=== PATIENT | male | born 1950 | race Caucasian/White ===

== ENCOUNTER 2018-09-17 07:06 | Emergency (ER) | payer OTHER, MEDICARE ==
[2018-09-17] MEDS ORDERED: GLUCOPHAGE500 MG PO (07:16)
[2018-09-17] MEDS ORDERED: GLIPIZIDE10 MG (07:17)
[2018-09-17] MEDS ORDERED: ASPIRIN81 MG PO (07:17)
[2018-09-17] MEDS ORDERED: TOPROL XL50 MG PO (07:18)
[2018-09-17] MEDS ORDERED: NORVASC10 MG PO (07:19)
[2018-09-17] MEDS ORDERED: AREDIA IV (07:20)
[2018-09-17] MEDS ORDERED: LITHIUM CARBON300 MG PO (07:20)
[2018-09-17] MEDS ORDERED: LIPITOR20 MG PO (07:20)
[2018-09-17] MEDS ORDERED: FLOMAX0.4 MG PO ×2 (07:21→09:02)
[2018-09-17] MEDS ORDERED: TRAZODONE HCL150 MG PO (07:22)
[2018-09-17] MEDS ORDERED: NEURONTIN 300300 MG PO (07:22)
[2018-09-17 07:36] LABS: BASOPHILS 0.1 % (0-2); EOSINOPHILS 3.6 % (0-7); HEMATOCRIT 35.4 % (42.0-54.0); HEMOGLOBIN 12.2 g/dL (13.5-17.5); IMMATURE GRANULOCYTES 0.1 % (0-5); LYMPHOCYTES 15.9 % (15-50); MCH 28.7 pg (26.0-34.0); MCHC 34.5 g/dL (31.0-37.0); MCV 83.3 fL (80.0-100.0); MEAN PLATELET VOLUME 9.1 fL (7.4-10.4); MONOCYTES 9.7 % (2-11); NEUTROPHILS 70.6 % (40-80); PLATELET COUNT 228 10x3/uL (130-400); RBC 4.25 10x6/uL (4.20-6.10); RDW 13.4 % (11.5-14.5); WBC 7.9 10x3/uL (4.8-10.8)
[2018-09-17 07:50] LABS: APTT 29.6 SECONDS (22.8-39.4); INR 1.12 (0.85-1.17); PROTIME 13.9 SECONDS (11.6-15.0)
[2018-09-17 08:01] LABS: APPEARANCE CLEAR (CLEAR); BILIRUBIN NEGATIVE (NEGATIVE); COLOR YELLOW (YELLOW); GLUCOSE NEGATIVE (NEGATIVE); KETONE NEGATIVE (NEGATIVE); NITRITE NEGATIVE (NEGATIVE); PROTEIN NEGATIVE (NEGATIVE); SPECIFIC GRAVITY 1.005 (1.005-1.020); UROBILINOGEN NORMAL (NORMAL)
[2018-09-17 08:02] LABS: ALBUMIN 3.8 g/dL (3.4-5.0); ALKALINE PHOSPHATASE 156 U/L (46-116); ALT (SGPT) 24 U/L (10-68); BILIRUBIN - TOTAL 0.93 mg/dL (0.2-1.3); CALC OSMOLALITY 285 mosm/kg (275-300); CALCIUM 9.2 mg/dL (8.5-10.1); CARBON DIOXIDE 23.8 mmol/L (21.0-32.0); CHLORIDE - SERUM 106 mmol/L (98-107); CREATININE - SERUM 0.6 mg/dL (0.6-1.3); GLUCOSE 156 mg/dL (74-106); POTASSIUM - SERUM 3.7 mmol/L (3.5-5.1); PROTEIN - SERUM 6.9 g/dL (6.4-8.2); SODIUM 142 mmol/L (136-145); UREA NITROGEN 13 mg/dL (7-18); eGFR NON AFRICAN AMERICAN > 90 mL/min (90-120)
[2018-09-17 08:10] LABS: CREATINE KINASE 63 UL (21-232); MAGNESIUM - SERUM 1.8 mg/dL (1.8-2.4); TROPONIN-I < 0.017 ng/mL (0.000-0.060)
[2018-09-17] MEDS ORDERED: LUNESTA1 MG PO (11:45)
[2018-09-17 12:15] VITALS: BP 148/77
== END 2018-09-17 12:27 | disposition home or self-care (01) ==
LOC: D.ER 07:06
PROVIDERS: Emergency Medicine
DX: R53.1 Weakness (principal); D64.9 Anemia, unspecified; H53.2 Diplopia; G47.00 Insomnia, unspecified; R35.0 Frequency of micturition

== ENCOUNTER 2019-11-29 08:58 | Emergency (ER) | payer OTHER ==
[~2019-11-29] VITALS: Ht 190.5 cm; Wt 115.0 kg
[~2019-11-29 08:58] MED LIST: AREDIA IV; ASPIRIN81 MG PO; FLOMAX0.4 MG PO; GLIPIZIDE10 MG; GLUCOPHAGE500 MG PO; LIPITOR20 MG PO; LITHIUM CARBON300 MG PO; LUNESTA1 MG PO; NEURONTIN 300300 MG PO; NORVASC10 MG PO; TOPROL XL50 MG PO; TRAZODONE HCL150 MG PO
[2019-11-29 09:09] VITALS: BP 134/62; Ht 190.5 cm; Wt 115.0 kg
[2019-11-29 10:07] LABS: BASOPHILS 0.2 % (0-2); EOSINOPHILS 3.6 % (0-7); HEMATOCRIT 34.8 % (42.0-54.0); IMMATURE GRANULOCYTES 0.2 % (0-5); MCH 26.8 pg (26.0-34.0); MCHC 31.6 g/dL (31.0-37.0); MCV 84.9 fL (80.0-100.0); MEAN PLATELET VOLUME 8.7 fL (7.4-10.4); MONOCYTES 7.1 % (2-11); NEUTROPHILS 78.9 % (40-80); PLATELET COUNT 261 10x3/uL (130-400); RDW 13.7 % (11.5-14.5); WBC 10.6 10x3/uL (4.8-10.8)
[2019-11-29 10:14] LABS: CALC OSMOLALITY 279 mosm/kg (275-300); CALCIUM 9.1 mg/dL (8.5-10.1); CARBON DIOXIDE 25.9 mmol/L (21.0-32.0); CHLORIDE - SERUM 107 mmol/L (98-107); CREATININE - SERUM 0.8 mg/dL (0.6-1.3); POTASSIUM - SERUM 3.8 mmol/L (3.5-5.1); SODIUM 141 mmol/L (136-145); UREA NITROGEN 9 mg/dL (7-18); eGFR NON AFRICAN AMERICAN > 90 mL/min (90-120)
[2019-11-29 10:16] LABS: GLUCOSE 95 mg/dL (74-106)
[2019-11-29 10:17] LABS: APTT 30.1 SECONDS (22.8-39.4); INR 1.05 (0.85-1.17); PROTIME 13.6 SECONDS (11.6-15.0)
[2019-11-29 10:20] LABS: ALBUMIN 3.4 g/dL (3.4-5.0); ALKALINE PHOSPHATASE 180 U/L (30-120); ALT (SGPT) 22 U/L (10-68); BILIRUBIN - TOTAL 0.54 mg/dL (0.2-1.3)
== END 2019-11-29 13:53 | disposition home or self-care (01) ==
LOC: D.ER 08:58
PROVIDERS: Family Medicine
DX: H02.401 Unspecified ptosis of right eyelid (principal); E11.9 Type 2 diabetes mellitus without complications; I10 Essential (primary) hypertension; Z79.84 Long term (current) use of oral hypoglycemic drugs